=== PATIENT | female | born 1935 | race Caucasian/White ===

== ENCOUNTER → 2018-08-02 10:00 | Outpatient (CLI) | payer MEDICARE, SELFPAY ==
[2018-08-02 10:30] LABS: Add Manual Diff / Slide Review NO; Basophils Percent Auto 1.4 % (0-2); Eosinophils Percent Auto 2.2 % (2-4); Lymphocytes Percent Auto 24.4 % (25-40); Mean Corpuscular HGB Conc 33.5 % (30-36); Mean Corpuscular Hemoglobin 32.9 PG (26-34); Mean Corpuscular Volume 98.2 fL (80-100); Monocytes Percent Auto 8.3 % (3-14); Neutrophils Absolute Auto 3500 /uL (3000-5900); Neutrophils Percent Auto 63.7 % (50-75); Red Blood Cell Count 4.27 X10^6/uL (4.0-5.2); Red Cell Distribution Width 14.4 % (11.6-14.8); White Blood Cell Count 5.5 X10^3/uL (4.5-11.0)
[2018-08-02 10:35] LABS: Platelet Count 710 X10^3/uL (150-400)
[2018-08-02 11:01] LABS: Platelet Estimate Increased on smear; RBC Morphology Normal Morphology
--- NOTE | 2018-08-07 09:56 | PC.NURSE ---
Per Dr Acosta's recommendation, pt will increase Hydrea dose to 400 mg PO alternating with 200 mg PO. She will come back in 1 month to recheck her CBC.
== END ==
PROVIDERS: Family Provider Family Medicine; PCP Family Medicine
DX: D47.3 Essential (hemorrhagic) thrombocythemia (principal); D45 Polycythemia vera; J44.9 Chronic obstructive pulmonary disease, unspecified; I10 Essential (primary) hypertension; Z86.718 Personal history of other venous thrombosis and embolism
CPT/HCPCS: 36415; 85025

== ENCOUNTER → 2018-09-04 13:39 | Outpatient (CLI) | payer MEDICARE, SELFPAY ==
[2018-09-04 13:52] LABS: Add Manual Diff / Slide Review NO; Basophils Percent Auto 0.4 % (0-2); Eosinophils Percent Auto 2.3 % (2-4); Hematocrit 42.2 % (36-46); Hemoglobin 13.7 g/dL (12.0-16.0); Lymphocytes Percent Auto 23.3 % (25-40); Mean Corpuscular HGB Conc 32.5 % (30-36); Mean Corpuscular Hemoglobin 31.8 PG (26-34); Mean Corpuscular Volume 97.8 fL (80-100); Monocytes Percent Auto 10.1 % (3-14); Neutrophils Absolute Auto 5300 /uL (1500-7000); Neutrophils Percent Auto 63.9 % (50-75); Platelet Count 670 X10^3/uL (150-400); Red Blood Cell Count 4.32 X10^6/uL (4.0-5.2); Red Cell Distribution Width 14.9 % (11.6-14.8); White Blood Cell Count 8.3 X10^3/uL (4.5-11.0)
== END ==
PROVIDERS: Family Provider Family Medicine; PCP Family Medicine
DX: D47.3 Essential (hemorrhagic) thrombocythemia (principal)
CPT/HCPCS: 36415; 85025

== ENCOUNTER → 2018-11-18 10:17 | Outpatient (CLI) | payer MEDICARE, SELFPAY ==
[2018-11-18 10:58] LABS: Add Manual Diff / Slide Review NO; Basophils Absolute Auto 0 /uL (0-100); Eosinophils Absolute Auto 100 /uL (0-450); Eosinophils Percent Auto 2.4 % (2-4); Hematocrit 41.4 % (36-46); Hemoglobin 13.3 g/dL (12.0-16.0); Lymphocytes Absolute Auto 1600 /uL (1100-4500); Lymphocytes Percent Auto 33.3 % (25-40); Mean Corpuscular HGB Conc 32.1 % (30-36); Mean Corpuscular Hemoglobin 31.4 PG (26-34); Mean Corpuscular Volume 97.9 fL (80-100); Monocytes Absolute Auto 600 /uL (0-900); Monocytes Percent Auto 12.1 % (3-14); Neutrophils Absolute Auto 2500 /uL (1500-7000); Neutrophils Percent Auto 51.2 % (50-75); Platelet Count 579 X10^3/uL (150-400); Red Blood Cell Count 4.23 X10^6/uL (4.0-5.2); Red Cell Distribution Width 18.1 % (11.6-14.8); White Blood Cell Count 4.9 X10^3/uL (4.5-11.0)
[2018-11-18 11:09] LABS: Alanine Aminotransferase 30 IU/L (9-52); Albumin 4.4 g/dL (3.5-5.0); Albumin Globulin Ratio 1.6 (1.0-2.8); Alkaline Phosphatase 84 U/L (38-126); Aspartate Aminotransferase 27 IU/L (14-36); BUN Creatinine Ratio 24.4 (6-22); Bilirubin Total 0.4 mg/dL (0.2-1.3); Blood Urea Nitrogen 22 mg/dL (7-17); Calcium 9.5 mg/dL (8.4-10.2); Carbon Dioxide 30 mmol/L (22-32); Chloride 99 mmol/L (98-107); Estimated Glomerular Filt Rate 59.7 mL/min (>60); Globulin 2.8 g/dL (1.7-4.1); Glucose 80 mg/dL (80-110); HEMOLYSIS < 15 (0-50); Potassium 4.5 mmol/L (3.4-5.1); Sodium 137 mmol/L (137-145); Total Protein 7.2 g/dL (6.3-8.2)
== END ==
PROVIDERS: Family Provider Family Medicine; PCP Family Medicine
DX: D47.3 Essential (hemorrhagic) thrombocythemia (principal)
CPT/HCPCS: 36415; 80053; 85025

== ENCOUNTER → 2019-02-18 08:00 | Outpatient (ROUT) | payer MEDICARE, SELFPAY ==
[2019-02-18 09:34] LABS: Add Manual Diff / Slide Review NO; Basophils Absolute Auto 100 /uL (0-100); Basophils Percent Auto 1.3 % (0-2); Eosinophils Absolute Auto 100 /uL (0-450); Hemoglobin 13.2 g/dL (12.0-16.0); Lymphocytes Absolute Auto 1400 /uL (1100-4500); Lymphocytes Percent Auto 29.7 % (25-40); Mean Corpuscular Hemoglobin 33.7 PG (26-34); Mean Corpuscular Volume 102.2 fL (80-100); Monocytes Absolute Auto 700 /uL (0-900); Monocytes Percent Auto 13.6 % (3-14); Neutrophils Absolute Auto 2500 /uL (1500-7000); Neutrophils Percent Auto 52.4 % (50-75); Platelet Count 613 X10^3/uL (150-400); Red Blood Cell Count 3.91 X10^6/uL (4.0-5.2); Red Cell Distribution Width 14.9 % (11.6-14.8); White Blood Cell Count 4.8 X10^3/uL (4.5-11.0)
== END ==
PROVIDERS: Family Provider Family Medicine; PCP Family Medicine
DX: D47.3 Essential (hemorrhagic) thrombocythemia (principal)
CPT/HCPCS: 36415; 85025

== ENCOUNTER → 2019-08-26 11:50 | Oncology outpatient (ONC) | payer MEDICARE, SELFPAY ==
[2018-07-31 11:59] VITALS: BP 169/78; PULSE 76; RESP 20; TEMP 36.3; O2SAT 95
--- NOTE | 2018-07-31 12:27 | ONC.PN ---
PN -Subjective Interval history: Diagnosis: Essential thrombocytosis, negative for LEA-2 or KIN-R mutations. Previous treatment: Hydroxyurea. She is currently on 2 times daily. Interval history: The patient is an 82-year-old woman who was seen today for follow-up of essential thrombocytosis. Since her last visit, she had the dose of her Hydrea decreased from 400 mg daily to 200 because of muscle cramps. Since decreasing the dose, her cramping has improved although not completely resolved. She otherwise has been feeling well. She denies any new aches or pains. No fevers chills or sweats. Appetite and energy level have been stable. Her biggest complaint has been worsening memory and dementia. She does have a history of prior DVT. She also notes that she has had a problem with a blood clot in the eye. She has had some something varicose veins on her legs but it does not look like any recent obvious thrombosis. Her past medical history is notable for COPD, hypertension. She has been worried about dementia. - Patient Self-Reported Symptoms SR eye issues: Vision changes SR ears, nose, mouth, throat issues: Ears ringing, Cough, Hoarseness Home Medications and Allergies Home Medications Medication Instructions Recorded Confirmed Type ACETAMINOPHEN/DIPHENHYDRAMINE 500 mg PO HSP #0 03/27/13 07/31/18 History (Tylenol Pm Ex-Strength Gelcap) amlodipine [Norvasc] 5 mg PO QDAY #0 03/27/13 07/31/18 History aspirin 81 mg PO QDAY #0 03/27/13 07/31/18 History famotidine [Pepcid] 20 mg PO BID #0 03/27/13 07/31/18 History mesalamine [Delzicol] 400 mg PO BID #0 03/27/13 07/31/18 History ferrous sulfate [iron] 325 mg PO DAILY 07/31/18 07/31/18 History hydroxyurea (sickle cell) [Droxia] 15 mg/kg PO DAILY 07/31/18 07/31/18 History methocarbamol 500 mg PO BID 07/31/18 07/31/18 History Allergies Allergy/AdvReac Type Severity Reaction Status Date / Time celecoxib [From CELEBREX] Allergy Unknown Verified 07/31/18 11:07 lisinopril [LISINOPRIL] Allergy Unknown Verified 07/31/18 11:07 rofecoxib Allergy Unknown Verified 07/31/18 11:07 Sulfa (Sulfonamide Allergy Unknown Verified 07/31/18 11:07 Antibiotics) sulfamethoxazole Allergy Unknown Verified 07/31/18 11:07 [From BACTRIM] tramadol [TRAMADOL] Allergy Unknown Verified 07/31/18 11:07 trimethoprim [From BACTRIM] Allergy Unknown Verified 07/31/18 11:07 ranitidine AdvReac Unknown Verified 07/31/18 11:07 Exam - Constitutional positive no acute distress, positive average body habitus - Routine HEENT Exam Head: Present: normocephalic, atraumatic Eye: Present: EOMI, PERRL. Absent: conjunctival icterus, scleral injection ENT: Present: mucous membranes moist, oropharynx clear - Routine Neck Exam Present: supple. Absent: lymphadenopathy, thyromegaly - Routine Chest/Breast/Axilla Exam Axillae: Absent: lymphadenopathy - Routine Respiratory Exam Present: Clear to auscultation bilaterally. Absent: rales, wheezes - Routine Cardiovascular Exam Present: RRR, S1, S2. Absent: murmur - Routine Abdominal Exam Present: soft, normoactive bowel sounds. Absent: tenderness, organomegaly, mass - Routine Extremities Exam Absent: cyanosis, clubbing, edema - Routine Skin Exam Present: intact, rash. Absent: petechiae Comments: She does have some varicose veins on the left lower extremity but no ulcers on the skin. Results - Labs Her most recent CBC in early July at [facility] showed a platelet count of [id number]. Assessment and Plan (1) Essential (hemorrhagic) thrombocythemia Current visit: Yes Status: Acute 82-year-old woman with a longstanding history of essential thrombocytosis. She is tolerating the lower dose of Hydrea but her platelet count seems to be increasing somewhat. We will plan on repeating a CBC today. She will return to clinic in about 2 months for follow-up. If her platelet count is consistently over 600,000, I think she will need to try and push the dose of Hydrea a little bit higher. We did briefly discuss the possibility of switching to anagrelide but she was concerned about their side effects. She return to clinic in about 2 weeks for follow-up but sooner should the need arise.
[2018-09-25 11:42] VITALS: BP 134/80; PULSE 93; RESP 18; TEMP 36.6; O2SAT 95
--- NOTE | 2018-09-25 12:04 | ONC.PN ---
PN -Subjective Interval history: Diagnosis: Essential thrombocytosis, negative for LEA-2 or KIN-R mutations. Previous treatment: Hydroxyurea. She is currently on 200 mg a day alternating with 200 mg twice a day. Interval history: The patient is an 82-year-old woman who was seen today for follow-up of essential thrombocytosis. Since her last visit, she has been on Hydrea 200 mg a day alternating with 400 mg a day. She has had some muscle cramps that had increased compared to the 200 mg a day dose. However, she finds the manageable. She has not had any recent bleeding or clotting complications. She denies any fevers chills or night sweats. Her appetite has been good. She has not had any abdominal pain but does have some increased frequency of stools particularly at night. No shortness of breath or cough. No dizziness or lightheadedness. She has been bothered by worsening dementia. She started a new supplement. She thinks that this is helping. She denies any other changes in her health. She does have a history of prior DVT. She also notes that she has had a problem with a blood clot in the eye. She has had some something varicose veins on her legs but it does not look like any recent obvious thrombosis. Her past medical history is notable for COPD, hypertension. She has been worried about dementia. - Patient Self-Reported Symptoms SR eye issues: Vision changes SR ears, nose, mouth, throat issues: Ears ringing SR respiratory issues: Cough SR Cardiovascular issues: Palpitations SR Gastrointestinal issues: Change in bowel pattern SR Genitourinary issues: Frequent urination SR Musculoskeletal issues: Muscle pain or cramps, Back or neck pain SR Neuro issues: Difficulty balancing SR Endocrine issues: Excessive urination Home Medications and Allergies Home Medications Medication Instructions Recorded Confirmed Type ACETAMINOPHEN/DIPHENHYDRAMINE 500 mg PO HSP #0 03/27/13 07/31/18 History (Tylenol Pm Ex-Strength Gelcap) amlodipine [Norvasc] 5 mg PO QDAY #0 03/27/13 07/31/18 History aspirin 81 mg PO QDAY #0 03/27/13 07/31/18 History famotidine [Pepcid] 20 mg PO BID #0 03/27/13 07/31/18 History mesalamine [Delzicol] 400 mg PO BID #0 03/27/13 07/31/18 History ferrous sulfate [iron] 325 mg PO DAILY 07/31/18 07/31/18 History hydroxyurea (sickle cell) [Droxia] 15 mg/kg PO DAILY 07/31/18 07/31/18 History methocarbamol 500 mg PO BID 07/31/18 07/31/18 History Allergies Allergy/AdvReac Type Severity Reaction Status Date / Time celecoxib [From CELEBREX] Allergy Unknown Verified 07/31/18 11:07 lisinopril [LISINOPRIL] Allergy Unknown Verified 07/31/18 11:07 rofecoxib Allergy Unknown Verified 07/31/18 11:07 Sulfa (Sulfonamide Allergy Unknown Verified 07/31/18 11:07 Antibiotics) sulfamethoxazole Allergy Unknown Verified 07/31/18 11:07 [From BACTRIM] tramadol [TRAMADOL] Allergy Unknown Verified 07/31/18 11:07 trimethoprim [From BACTRIM] Allergy Unknown Verified 07/31/18 11:07 ranitidine AdvReac Unknown Verified 07/31/18 11:07 Exam - Constitutional positive no acute distress, positive average body habitus Comments: She is not further examined. Results - Labs On September 04, her platelet count was [id number]. Assessment and Plan (1) Essential (hemorrhagic) thrombocythemia Current visit: Yes Status: Acute 82-year-old woman with a longstanding history of essential thrombocytosis. She is tolerating her current dose of Hydrea reasonably well but still is having some cramping. However, she finds it manageable. Her platelet count is still somewhat higher than ideal. She is willing to go back to the 400 mg a day dose. She will continue with monthly CBCs and return to clinic in about 2 months for follow-up.
--- NOTE | 2018-10-22 15:56 | PC.NURSE ---
Pt called to report a purple spot with a red center on inside of her leg. Pt states she has had multiple blood clots and is worried this could be another one. I encouraged her to go to the ED if she felt it was warranty but she declined. She denied it being sore, swollen, or warm to touch. She comes on 10/23 for labs and she will also have an RN jyoti at that time
[2018-10-23 11:08] LABS: Add Manual Diff / Slide Review NO; Basophils Absolute Auto 100 /uL (0-100); Basophils Percent Auto 1.5 % (0-2); Eosinophils Absolute Auto 100 /uL (0-450); Eosinophils Percent Auto 2.7 % (2-4); Hemoglobin 13.8 g/dL (12.0-16.0); Lymphocytes Absolute Auto 1700 /uL (1100-4500); Lymphocytes Percent Auto 31.2 % (25-40); Mean Corpuscular HGB Conc 32.1 % (30-36); Mean Corpuscular Hemoglobin 31.2 PG (26-34); Mean Corpuscular Volume 97.2 fL (80-100); Monocytes Absolute Auto 600 /uL (0-900); Monocytes Percent Auto 11.6 % (3-14); Neutrophils Absolute Auto 2800 /uL (1500-7000); Platelet Count 600 X10^3/uL (150-400); Red Blood Cell Count 4.42 X10^6/uL (4.0-5.2); Red Cell Distribution Width 16.9 % (11.6-14.8); White Blood Cell Count 5.4 X10^3/uL (4.5-11.0)
[2018-11-26 15:54] VITALS: BP 151/78; PULSE 71; RESP 18; TEMP 36.6; O2SAT 97
--- NOTE | 2018-11-26 16:22 | P.PNONC_ITS ---
PN -Subjective Interval history: Diagnosis: Essential thrombocytosis, negative for LEA-2 or KIN-R mutations. Previous treatment: Hydroxyurea. She is currently on 200 mg twice a day. Interval history: The patient is an 83-year-old woman who was seen today for follow-up of essential thrombocytosis. Since her last visit, she has been on Hydrea 400 mg a day. She has had worsening of her muscle cramps particularly in her hands. It has made it difficult to go about a lot of her normal activities such as drying her hair. She has not had any unusual bleeding. She does bruise fairly easily. She denies any gingival bleeding or epistaxis though. No blood in the urine or stool. She denies any fevers chills or sweats. Her appetite has been stable. She has not been losing any weight. She denies any GI complaints. She has been bothered by a small lump on the right side of her posterior neck. She also reports that she is due for some eye surgery. At her last visit, we discussed decreasing the dose of her Hydrea to 200 mg a day alternating with 400 mg a day. She did not do this instead has been taking 400 mg daily. She does have a history of prior DVT. She also notes that she has had a problem with a blood clot in the eye. She has had some something varicose veins on her legs but it does not look like any recent obvious thrombosis. Her past medical history is notable for COPD, hypertension. She has been worried about dementia. - Patient Self-Reported Symptoms SR eye issues: Vision changes SR ears, nose, mouth, throat issues: Ears ringing SR respiratory issues: Cough SR Cardiovascular issues: Palpitations SR Gastrointestinal issues: Change in bowel pattern SR Genitourinary issues: Frequent urination SR Musculoskeletal issues: Muscle pain or cramps, Back or neck pain SR Neuro issues: Difficulty balancing SR Endocrine issues: Excessive urination Home Medications and Allergies Home Medications Medication Instructions Recorded Confirmed Type ACETAMINOPHEN/DIPHENHYDRAMINE 500 mg PO HSP #0 03/27/13 11/26/18 History (Tylenol Pm Ex-Strength Gelcap) Delzicol 400 mg PO BID #0 03/27/13 11/26/18 History amlodipine [Norvasc] 5 mg PO QDAY #0 03/27/13 11/26/18 History aspirin 81 mg PO QDAY #0 03/27/13 11/26/18 History famotidine [Pepcid] 20 mg PO BID #0 03/27/13 11/26/18 History ferrous sulfate [iron] 325 mg PO DAILY 07/31/18 11/26/18 History hydroxyurea (sickle cell) [Droxia] 15 mg/kg PO DAILY 07/31/18 11/26/18 History methocarbamol 500 mg PO BID 07/31/18 11/26/18 History Allergies Allergy/AdvReac Type Severity Reaction Status Date / Time celecoxib [From CELEBREX] Allergy Unknown Verified 07/31/18 11:07 lisinopril [LISINOPRIL] Allergy Unknown Verified 07/31/18 11:07 rofecoxib Allergy Unknown Verified 07/31/18 11:07 Sulfa (Sulfonamide Allergy Unknown Verified 07/31/18 11:07 Antibiotics) sulfamethoxazole Allergy Unknown Verified 07/31/18 11:07 [From BACTRIM] tramadol [TRAMADOL] Allergy Unknown Verified 07/31/18 11:07 trimethoprim [From BACTRIM] Allergy Unknown Verified 07/31/18 11:07 ranitidine AdvReac Unknown Verified 07/31/18 11:07 Exam Vital signs: Vital Signs Temp Pulse Resp BP Pulse Ox 11/26/18 15:54 97.9 F 71 18 151/78 H 97 Intake and Output 11/26/18 11/26/18 11/26/18 07:59 15:59 23:59 Other: Weight 55.8 kg Patient Weight 11/26/18 23:59 Weight 55.8 kg - Constitutional positive no acute distress, positive average body habitus - Routine HEENT Exam Head: Present: normocephalic, atraumatic Eye: Present: EOMI, PERRL. Absent: conjunctival icterus, scleral injection ENT: Present: mucous membranes moist, oropharynx clear - Routine Neck Exam Present: supple. Absent: lymphadenopathy, thyromegaly Comments: She has a small nodular subcutaneous lesion on the right posterior neck that is about 5 mm in size. It is mobile and not tender. There is no overlying erythema. - Routine Respiratory Exam Present: Clear to auscultation bilaterally. Absent: rales, wheezes - Routine Cardiovascular Exam Present: RRR, S1, S2. Absent: murmur - Routine Abdominal Exam Present: soft, normoactive bowel sounds. Absent: tenderness, organomegaly, mass - Routine Extremities Exam Absent: cyanosis, clubbing, edema - Routine Back/Spine Exam Back/Spine: Absent: vertebral tenderness - Routine Skin Exam Present: intact. Absent: petechiae, rash - Routine Neurological Exam Present: alert, oriented X3 - Routine Psychiatric Exam Present: normal affect, normal thought process Results - Labs Laboratory Last Values WBC 5.4 X10^3/uL (4.5-11.0) 10/23/18 10:58 RBC 4.42 X10^6/uL (4.0-5.2) 10/23/18 10:58 Hgb 13.8 g/dL (12.0-16.0) 10/23/18 10:58 Hct 43.0 % (36-46) 10/23/18 10:58 MCV 97.2 fL (80-100) 10/23/18 10:58 MCH 31.2 PG (26-34) 10/23/18 10:58 MCHC 32.1 % (30-36) 10/23/18 10:58 RDW 16.9 % (11.6-14.8) H 10/23/18 10:58 Plt Count 600 X10^3/uL (150-400) H 10/23/18 10:58 Neut % (Auto) 53.0 % (50-75) 10/23/18 10:58 Lymph % (Auto) 31.2 % (25-40) 10/23/18 10:58 [place] % (Auto) 11.6 % (3-14) 10/23/18 10:58 Eos % (Auto) 2.7 % (2-4) 10/23/18 10:58 Baso % (Auto) 1.5 % (0-2) 10/23/18 10:58 Neut # (Auto) 2800 /uL (7923-9884) 10/23/18 10:58 Lymph # (Auto) 1700 /uL (1388-2482) 10/23/18 10:58 [place] # (Auto) 600 /uL (0-900) 10/23/18 10:58 Eos # (Auto) 100 /uL (0-450) 10/23/18 10:58 Baso # (Auto) 100 /uL (0-100) 10/23/18 10:58 Assessment and Plan (1) Essential (hemorrhagic) thrombocythemia Current visit: Yes Status: Acute 82-year-old woman with a longstanding history of essential thrombocytosis. She is tolerating her current dose of Hydrea reasonably well but still is having some cramping. She will try switching now to 200 mg a day alternating with 400 mg on the Hydrea. Hopefully this will provide ongoing good control of her platelet count with decrease in the amount of cramping that she is having. She will continue with monthly CBCs. She will return to clinic in about 3 months for follow-up.
[2018-12-27 11:44] LABS: Add Manual Diff / Slide Review NO; Basophils Absolute Auto 100 /uL (0-100); Basophils Percent Auto 1.4 % (0-2); Eosinophils Absolute Auto 100 /uL (0-450); Eosinophils Percent Auto 2.2 % (2-4); Hematocrit 40.2 % (36-46); Hemoglobin 13.4 g/dL (12.0-16.0); Lymphocytes Absolute Auto 1700 /uL (1100-4500); Lymphocytes Percent Auto 31.7 % (25-40); Mean Corpuscular HGB Conc 33.4 % (30-36); Mean Corpuscular Hemoglobin 33.7 PG (26-34); Mean Corpuscular Volume 100.9 fL (80-100); Monocytes Absolute Auto 700 /uL (0-900); Monocytes Percent Auto 13.7 % (3-14); Neutrophils Absolute Auto 2700 /uL (1500-7000); Platelet Count 574 X10^3/uL (150-400); Red Blood Cell Count 3.99 X10^6/uL (4.0-5.2); Red Cell Distribution Width 17.5 % (11.6-14.8); White Blood Cell Count 5.4 X10^3/uL (4.5-11.0)
[2019-01-28 11:13] LABS: Add Manual Diff / Slide Review NO; Basophils Absolute Auto 100 /uL (0-100); Basophils Percent Auto 1.3 % (0-2); Eosinophils Absolute Auto 100 /uL (0-450); Eosinophils Percent Auto 1.2 % (2-4); Hematocrit 39.7 % (36-46); Hemoglobin 13.5 g/dL (12.0-16.0); Lymphocytes Absolute Auto 1800 /uL (1100-4500); Lymphocytes Percent Auto 20.5 % (25-40); Mean Corpuscular HGB Conc 34.1 % (30-36); Mean Corpuscular Hemoglobin 34.2 PG (26-34); Mean Corpuscular Volume 100.3 fL (80-100); Monocytes Absolute Auto 900 /uL (0-900); Monocytes Percent Auto 10.2 % (3-14); Neutrophils Absolute Auto 5900 /uL (1500-7000); Neutrophils Percent Auto 66.8 % (50-75); Platelet Count 634 X10^3/uL (150-400); Red Blood Cell Count 3.96 X10^6/uL (4.0-5.2); Red Cell Distribution Width 15.7 % (11.6-14.8); White Blood Cell Count 8.8 X10^3/uL (4.5-11.0)
[2019-01-28 11:24] LABS: Alanine Aminotransferase 26 IU/L (9-52); Albumin 4.5 g/dL (3.5-5.0); Albumin Globulin Ratio 1.7 (1.0-2.8); Alkaline Phosphatase 88 U/L (38-126); Aspartate Aminotransferase 28 IU/L (14-36); BUN Creatinine Ratio 37.8 (6-22); Bilirubin Total 0.5 mg/dL (0.2-1.3); Blood Urea Nitrogen 34 mg/dL (7-17); Carbon Dioxide 32 mmol/L (22-32); Chloride 100 mmol/L (98-107); Estimated Glomerular Filt Rate 59.7 mL/min (>60); Globulin 2.6 g/dL (1.7-4.1); Glucose 77 mg/dL (80-110); HEMOLYSIS < 15 (0-50); Potassium 4.6 mmol/L (3.4-5.1); Sodium 139 mmol/L (137-145); Total Protein 7.1 g/dL (6.3-8.2)
[2019-02-25 13:15] VITALS: BP 153/69; PULSE 69; RESP 16; TEMP 36.7; O2SAT 96
--- NOTE | 2019-02-25 13:38 | ONC.PN ---
PN -Subjective Interval history: Diagnosis: Essential thrombocytosis, negative for LEA-2 or KIN-R mutations. Previous treatment: Hydroxyurea. She is currently on 200 mg twice a day alternating with 200 mg daily. Interval history: The patient is an 83-year-old woman who was seen today for follow-up of essential thrombocytosis. Since her last visit, she has been on Hydrea 400 mg a day alternating with 200 mg daily. She has had ongoing muscle cramps particularly in her hands. It has made it difficult to go about a lot of her normal activities such as drying her hair. She does not believe that the cramping is any better on the lower dose. She has not had any unusual bleeding. She does bruise fairly easily. She denies any gingival bleeding or epistaxis though. No blood in the urine or stool. She denies any fevers chills or sweats. Her appetite has been stable. She has not been losing any weight. She denies any GI complaints. She has been bothered by a small lump on the right side of her posterior neck. She recently had some eye surgery with no bleeding or clotting complications. She does have a history of prior DVT. She also notes that she has had a problem with a blood clot in the eye. She has had some something varicose veins on her legs but it does not look like any recent obvious thrombosis. Her past medical history is notable for COPD, hypertension. She has been worried about dementia. - Patient Self-Reported Symptoms SR eye issues: Vision changes SR ears, nose, mouth, throat issues: Ears ringing SR respiratory issues: Cough SR Cardiovascular issues: Palpitations SR Gastrointestinal issues: Change in bowel pattern SR Genitourinary issues: Frequent urination SR Musculoskeletal issues: Muscle weakness, Muscle pain or cramps SR Neuro issues: Difficulty balancing SR Endocrine issues: Excessive urination Home Medications and Allergies Home Medications Medication Instructions Recorded Confirmed Type ACETAMINOPHEN/DIPHENHYDRAMINE 500 mg PO HSP #0 03/27/13 11/26/18 History (Tylenol Pm Ex-Strength Gelcap) Delzicol 400 mg PO BID #0 03/27/13 11/26/18 History amlodipine [Norvasc] 5 mg PO QDAY #0 03/27/13 11/26/18 History aspirin 81 mg PO QDAY #0 03/27/13 11/26/18 History famotidine [Pepcid] 20 mg PO BID #0 03/27/13 11/26/18 History ferrous sulfate [iron] 325 mg PO DAILY 07/31/18 11/26/18 History hydroxyurea (sickle cell) [Droxia] 15 mg/kg PO DAILY 07/31/18 11/26/18 History methocarbamol 500 mg PO BID 07/31/18 11/26/18 History donepezil 5 mg PO BEDTIME 02/25/19 02/25/19 History Allergies Allergy/AdvReac Type Severity Reaction Status Date / Time celecoxib [From CELEBREX] Allergy Unknown Verified 07/31/18 11:07 lisinopril [LISINOPRIL] Allergy Unknown Verified 07/31/18 11:07 rofecoxib Allergy Unknown Verified 07/31/18 11:07 Sulfa (Sulfonamide Allergy Unknown Verified 07/31/18 11:07 Antibiotics) sulfamethoxazole Allergy Unknown Verified 07/31/18 11:07 [From BACTRIM] tramadol [TRAMADOL] Allergy Unknown Verified 07/31/18 11:07 trimethoprim [From BACTRIM] Allergy Unknown Verified 07/31/18 11:07 ranitidine AdvReac Unknown Verified 07/31/18 11:07 Exam Vital signs: Vital Signs Temp Pulse Resp BP Pulse Ox 02/25/19 13:15 98.0 F 69 16 153/69 H 96 Intake and Output 02/24/19 02/25/19 02/25/19 23:59 07:59 15:59 Other: Weight 54.3 kg Patient Weight 02/25/19 23:59 Weight 54.3 kg - Constitutional positive no acute distress, positive average body habitus - Routine HEENT Exam Head: Present: normocephalic, atraumatic Eye: Present: EOMI, PERRL. Absent: conjunctival icterus ENT: Present: mucous membranes moist, oropharynx clear - Routine Neck Exam Present: supple. Absent: lymphadenopathy - Routine Respiratory Exam Present: Clear to auscultation bilaterally. Absent: rales, wheezes - Routine Cardiovascular Exam Present: RRR, S1, S2. Absent: murmur - Routine Abdominal Exam Present: soft, normoactive bowel sounds. Absent: tenderness, organomegaly, mass - Routine Extremities Exam Absent: edema Comments: She does have swelling of the joints consistent with osteoarthritis. - Routine Skin Exam Present: intact. Absent: petechiae, rash - Routine Neurological Exam Present: alert, oriented X3 - Routine Psychiatric Exam Present: normal affect, normal thought process Results - Labs Laboratory Last Values WBC 8.8 X10^3/uL (4.5-11.0) 01/28/19 11:00 RBC 3.96 X10^6/uL (4.0-5.2) L 01/28/19 11:00 Hgb 13.5 g/dL (12.0-16.0) 01/28/19 11:00 Hct 39.7 % (36-46) 01/28/19 11:00 MCV 100.3 fL (80-100) H 01/28/19 11:00 MCH 34.2 PG (26-34) H 01/28/19 11:00 MCHC 34.1 % (30-36) 01/28/19 11:00 RDW 15.7 % (11.6-14.8) H 01/28/19 11:00 Plt Count 634 X10^3/uL (150-400) H 01/28/19 11:00 Neut % (Auto) 66.8 % (50-75) 01/28/19 11:00 Lymph % (Auto) 20.5 % (25-40) L 01/28/19 11:00 [place] % (Auto) 10.2 % (3-14) 01/28/19 11:00 Eos % (Auto) 1.2 % (2-4) L 01/28/19 11:00 Baso % (Auto) 1.3 % (0-2) 01/28/19 11:00 Neut # (Auto) 5900 /uL (6369-1808) 01/28/19 11:00 Lymph # (Auto) 1800 /uL (3256-8242) 01/28/19 11:00 [place] # (Auto) 900 /uL (0-900) 01/28/19 11:00 Eos # (Auto) 100 /uL (0-450) 01/28/19 11:00 Baso # (Auto) 100 /uL (0-100) 01/28/19 11:00 Sodium 139 mmol/L (137-145) 01/28/19 11:00 Potassium 4.6 mmol/L (3.4-5.1) 01/28/19 11:00 Chloride 100 mmol/L (98-107) 01/28/19 11:00 Carbon Dioxide 32 mmol/L (22-32) 01/28/19 11:00 BUN 34 mg/dL (7-17) H 01/28/19 11:00 Creatinine 0.90 mg/dL (0.52-1.04) 01/28/19 11:00 Estimated GFR 59.7 mL/min (>60) L 01/28/19 11:00 BUN/Creatinine Ratio 37.8 (6-22) H 01/28/19 11:00 Glucose 77 mg/dL (80-110) L 01/28/19 11:00 Calcium 10.0 mg/dL (8.4-10.2) 01/28/19 11:00 Total Bilirubin 0.5 mg/dL (0.2-1.3) 01/28/19 11:00 AST 28 IU/L (14-36) 01/28/19 11:00 ALT 26 IU/L (9-52) 01/28/19 11:00 Alkaline Phosphatase 88 U/L (38-126) 01/28/19 11:00 Total Protein 7.1 g/dL (6.3-8.2) 01/28/19 11:00 Albumin 4.5 g/dL (3.5-5.0) 01/28/19 11:00 Globulin 2.6 g/dL (1.7-4.1) 01/28/19 11:00 Albumin/Globulin Ratio 1.7 (1.0-2.8) 01/28/19 11:00 Assessment and Plan (1) Essential (hemorrhagic) thrombocythemia Current visit: Yes Status: Acute 82-year-old woman with a longstanding history of essential thrombocytosis. She is tolerating her current dose of Hydrea except for cramping. She will try switching now to 200 mg a day. Hopefully this will provide ongoing good control of her platelet count with decrease in the amount of cramping that she is having. She will continue with monthly CBCs. She will return to clinic in about 2 months for follow-up.
[2019-03-26 11:03] LABS: Basophils Absolute Auto 100 /uL (0-100); Basophils Percent Auto 1.3 % (0-2); Eosinophils Absolute Auto 200 /uL (0-450); Eosinophils Percent Auto 2.1 % (2-4); Hematocrit 40.4 % (36-46); Hemoglobin 13.5 g/dL (12.0-16.0); Lymphocytes Absolute Auto 1700 /uL (1100-4500); Lymphocytes Percent Auto 21.9 % (25-40); Mean Corpuscular HGB Conc 33.4 % (30-36); Mean Corpuscular Volume 98.9 fL (80-100); Monocytes Absolute Auto 1000 /uL (0-900); Monocytes Percent Auto 12.4 % (3-14); Neutrophils Absolute Auto 4900 /uL (1500-7000); Neutrophils Percent Auto 62.3 % (50-75); Red Blood Cell Count 4.08 X10^6/uL (4.0-5.2); Red Cell Distribution Width 14.5 % (11.6-14.8); White Blood Cell Count 7.9 X10^3/uL (4.5-11.0)
[2019-03-26 11:08] LABS: Add Manual Diff / Slide Review SLIDE REVIEW; Platelet Count 733 X10^3/uL (150-400)
[2019-03-26 11:26] LABS: Platelet Estimate Increased on smear; RBC Morphology Normal Morphology
[2019-04-22 11:51] LABS: Add Manual Diff / Slide Review NO; Basophils Absolute Auto 100 /uL (0-100); Basophils Percent Auto 1.2 % (0-2); Eosinophils Absolute Auto 200 /uL (0-450); Eosinophils Percent Auto 2.5 % (2-4); Hematocrit 42.9 % (36-46); Hemoglobin 14.2 g/dL (12.0-16.0); Lymphocytes Absolute Auto 1600 /uL (1100-4500); Lymphocytes Percent Auto 23.6 % (25-40); Mean Corpuscular Hemoglobin 31.6 PG (26-34); Mean Corpuscular Volume 95.8 fL (80-100); Monocytes Absolute Auto 900 /uL (0-900); Monocytes Percent Auto 13.1 % (3-14); Neutrophils Absolute Auto 4100 /uL (1500-7000); Neutrophils Percent Auto 59.6 % (50-75); Platelet Count 752 X10^3/uL (150-400); Red Blood Cell Count 4.48 X10^6/uL (4.0-5.2); Red Cell Distribution Width 14.6 % (11.6-14.8); White Blood Cell Count 6.9 X10^3/uL (4.5-11.0)
[2019-04-22 11:56] LABS: Alanine Aminotransferase 41 IU/L (9-52); Albumin 4.4 g/dL (3.5-5.0); Albumin Globulin Ratio 1.6 (1.0-2.8); Alkaline Phosphatase 100 U/L (38-126); Aspartate Aminotransferase 35 IU/L (14-36); BUN Creatinine Ratio 33.8 (6-22); Bilirubin Total 0.4 mg/dL (0.2-1.3); Blood Urea Nitrogen 27 mg/dL (7-17); Calcium 9.6 mg/dL (8.4-10.2); Carbon Dioxide 29 mmol/L (22-32); Chloride 100 mmol/L (98-107); Estimated Glomerular Filt Rate > 60.0 mL/min (>60); Globulin 2.7 g/dL (1.7-4.1); Glucose 91 mg/dL (80-110); HEMOLYSIS < 15 (0-50); Potassium 5.2 mmol/L (3.4-5.1); Sodium 140 mmol/L (137-145); Total Protein 7.1 g/dL (6.3-8.2)
[2019-04-22 12:17] LABS: Platelet Estimate Increased on smear
[2019-04-22 12:18] LABS: RBC Morphology Normal Morphology
[2019-04-29 13:48] VITALS: BP 139/69; PULSE 64; RESP 16; TEMP 36.7; O2SAT 95
--- NOTE | 2019-04-29 14:08 | ONC.PN ---
PN -Subjective Interval history: Diagnosis: Essential thrombocytosis, negative for LEA-2 or KIN-R mutations. Previous treatment: Hydroxyurea. She is currently on 200 mg daily. Interval history: The patient is an 83-year-old woman who was seen today for follow-up of essential thrombocytosis. Since her last visit, she has had some confusion about how often to take her hydroxyurea. It sounds like she has been taking 1 tablet daily but last week started taking 2 daily. Since her last visit here, she has been feeling generally well. She has had some ongoing trouble with neuropathy that is been stable. She is using some gabapentin but has not noticed any improvement in her symptoms. She denies any unusual bleeding or bruising. No fevers chills or sweats. Appetite has been stable. Bowels have been moving normally. No shortness of breath or cough. She denies any other changes in her health. Her past medical history is notable for COPD, hypertension. She has been worried about dementia. - Patient Self-Reported Symptoms SR eye issues: Vision changes SR ears, nose, mouth, throat issues: Ears ringing SR respiratory issues: Cough SR Cardiovascular issues: Palpitations SR Gastrointestinal issues: Change in bowel pattern SR Genitourinary issues: Frequent urination SR Musculoskeletal issues: Muscle pain or cramps, Back or neck pain SR Neuro issues: Difficulty balancing SR Endocrine issues: Excessive urination Home Medications and Allergies Home Medications Medication Instructions Recorded Confirmed Type ACETAMINOPHEN/DIPHENHYDRAMINE 500 mg PO HSP #0 03/27/13 11/26/18 History (Tylenol Pm Ex-Strength Gelcap) Delzicol 400 mg PO BID #0 03/27/13 11/26/18 History amlodipine [Norvasc] 5 mg PO QDAY #0 03/27/13 11/26/18 History aspirin 81 mg PO QDAY #0 03/27/13 11/26/18 History famotidine [Pepcid] 20 mg PO BID #0 03/27/13 11/26/18 History ferrous sulfate [iron] 325 mg PO DAILY 07/31/18 11/26/18 History hydroxyurea (sickle cell) [Droxia] 15 mg/kg PO DAILY 07/31/18 11/26/18 History methocarbamol 500 mg PO BID 07/31/18 11/26/18 History donepezil 5 mg PO BEDTIME 02/25/19 02/25/19 History gabapentin 300 mg PO BEDTIME 04/29/19 04/29/19 History Allergies Allergy/AdvReac Type Severity Reaction Status Date / Time celecoxib [From CELEBREX] Allergy Unknown Verified 07/31/18 11:07 lisinopril [LISINOPRIL] Allergy Unknown Verified 07/31/18 11:07 rofecoxib Allergy Unknown Verified 07/31/18 11:07 Sulfa (Sulfonamide Allergy Unknown Verified 07/31/18 11:07 Antibiotics) sulfamethoxazole Allergy Unknown Verified 07/31/18 11:07 [From BACTRIM] tramadol [TRAMADOL] Allergy Unknown Verified 07/31/18 11:07 trimethoprim [From BACTRIM] Allergy Unknown Verified 07/31/18 11:07 ranitidine AdvReac Unknown Verified 07/31/18 11:07 Exam Vital signs: Vital Signs Temp Pulse Resp BP Pulse Ox 04/29/19 13:48 98.1 F 64 16 139/69 95 Intake and Output 04/28/19 04/29/19 04/29/19 23:59 07:59 15:59 Other: Weight 53.6 kg Patient Weight 04/29/19 23:59 Weight 53.6 kg - Constitutional positive no acute distress, positive thin - Routine HEENT Exam Head: Present: normocephalic, atraumatic Eye: Present: EOMI, PERRL. Absent: conjunctival icterus, scleral injection ENT: Present: mucous membranes moist, oropharynx clear - Routine Neck Exam Present: supple. Absent: lymphadenopathy, thyromegaly - Routine Respiratory Exam Present: Clear to auscultation bilaterally. Absent: rales, wheezes - Routine Cardiovascular Exam Present: RRR, S1, S2. Absent: murmur - Routine Abdominal Exam Present: soft, normoactive bowel sounds. Absent: tenderness, organomegaly, mass - Routine Extremities Exam Absent: cyanosis, clubbing, edema - Routine Back/Spine Exam Back/Spine: Absent: vertebral tenderness - Routine Skin Exam Present: intact. Absent: petechiae, rash - Routine Neurological Exam Present: alert, oriented X3 - Routine Psychiatric Exam Present: normal affect, normal thought process Results - Labs Laboratory Last Values WBC 6.9 X10^3/uL (4.5-11.0) 04/22/19 11:18 RBC 4.48 X10^6/uL (4.0-5.2) 04/22/19 11:18 Hgb 14.2 g/dL (12.0-16.0) 04/22/19 11:18 Hct 42.9 % (36-46) 04/22/19 11:18 MCV 95.8 fL (80-100) 04/22/19 11:18 MCH 31.6 PG (26-34) 04/22/19 11:18 MCHC 33.0 % (30-36) 04/22/19 11:18 RDW 14.6 % (11.6-14.8) 04/22/19 11:18 Plt Count 752 X10^3/uL (150-400) H 04/22/19 11:18 Neut % (Auto) 59.6 % (50-75) 04/22/19 11:18 Lymph % (Auto) 23.6 % (25-40) L 04/22/19 11:18 [place] % (Auto) 13.1 % (3-14) 04/22/19 11:18 Eos % (Auto) 2.5 % (2-4) 04/22/19 11:18 Baso % (Auto) 1.2 % (0-2) 04/22/19 11:18 Neut # (Auto) 4100 /uL (4610-1066) 04/22/19 11:18 Lymph # (Auto) 1600 /uL (8894-5613) 04/22/19 11:18 [place] # (Auto) 900 /uL (0-900) 04/22/19 11:18 Eos # (Auto) 200 /uL (0-450) 04/22/19 11:18 Baso # (Auto) 100 /uL (0-100) 04/22/19 11:18 Platelet Estimate Increased on smear 04/22/19 11:18 Plt Morphology Comment 04/22/19 11:18 RBC Morphology Normal morphology 04/22/19 11:18 Sodium 140 mmol/L (137-145) 04/22/19 11:18 Potassium 5.2 mmol/L (3.4-5.1) H 04/22/19 11:18 Chloride 100 mmol/L (98-107) 04/22/19 11:18 Carbon Dioxide 29 mmol/L (22-32) 04/22/19 11:18 BUN 27 mg/dL (7-17) H 04/22/19 11:18 Creatinine 0.80 mg/dL (0.52-1.04) 04/22/19 11:18 Estimated GFR > 60.0 mL/min (>60) 04/22/19 11:18 BUN/Creatinine Ratio 33.8 (6-22) H 04/22/19 11:18 Glucose 91 mg/dL (80-110) 04/22/19 11:18 Calcium 9.6 mg/dL (8.4-10.2) 04/22/19 11:18 Total Bilirubin 0.4 mg/dL (0.2-1.3) 04/22/19 11:18 AST 35 IU/L (14-36) 04/22/19 11:18 ALT 41 IU/L (9-52) 04/22/19 11:18 Alkaline Phosphatase 100 U/L (38-126) 04/22/19 11:18 Total Protein 7.1 g/dL (6.3-8.2) 04/22/19 11:18 Albumin 4.4 g/dL (3.5-5.0) 04/22/19 11:18 Globulin 2.7 g/dL (1.7-4.1) 04/22/19 11:18 Albumin/Globulin Ratio 1.6 (1.0-2.8) 04/22/19 11:18 Assessment and Plan (1) Essential (hemorrhagic) thrombocythemia Current visit: Yes Status: Acute 82-year-old woman with a longstanding history of essential thrombocytosis. Her white cell count red cell count of been normal or platelet count is in the 700. Will try and increase the dose of Hydrea a little bit. She will try and stick with the 1 pill a day alternating with 2 pills a day. She will continue with monthly CBCs and return to clinic in 3 months for follow-up.
[2019-05-28 11:36] LABS: Add Manual Diff / Slide Review NO; Basophils Absolute Auto 100 /uL (0-100); Basophils Percent Auto 1.1 % (0-2); Eosinophils Absolute Auto 200 /uL (0-450); Eosinophils Percent Auto 2.3 % (2-4); Hematocrit 41.7 % (36-46); Hemoglobin 13.5 g/dL (12.0-16.0); Lymphocytes Absolute Auto 2000 /uL (1100-4500); Lymphocytes Percent Auto 30.3 % (25-40); Mean Corpuscular HGB Conc 32.2 % (30-36); Mean Corpuscular Hemoglobin 30.6 PG (26-34); Monocytes Absolute Auto 1000 /uL (0-900); Monocytes Percent Auto 14.8 % (3-14); Neutrophils Absolute Auto 3400 /uL (1500-7000); Neutrophils Percent Auto 51.5 % (50-75); Platelet Count 686 X10^3/uL (150-400); Red Blood Cell Count 4.39 X10^6/uL (4.0-5.2); Red Cell Distribution Width 14.8 % (11.6-14.8); White Blood Cell Count 6.6 X10^3/uL (4.5-11.0)
--- NOTE | 2019-06-09 15:57 | ONC.MSW ---
Description: T/C from pt re: hydroxurea, and the need for a new script to be faxed to [facility]. Dr. Valentin had been presribing before, but he is deferring to Dr. Acosta to continue prescribing and issue this script. BUDGET TECHNICIAN provided director of housing and energy servicesKylee, the fax and phone contact information to expedite.
[2019-06-27 11:03] LABS: Add Manual Diff / Slide Review NO; Basophils Absolute Auto 100 /uL (0-100); Basophils Percent Auto 1.4 % (0-2); Eosinophils Absolute Auto 200 /uL (0-450); Eosinophils Percent Auto 2.3 % (2-4); Hematocrit 40.3 % (36-46); Hemoglobin 13.5 g/dL (12.0-16.0); Lymphocytes Absolute Auto 2000 /uL (1100-4500); Lymphocytes Percent Auto 30.4 % (25-40); Mean Corpuscular HGB Conc 33.5 % (30-36); Mean Corpuscular Hemoglobin 31.3 PG (26-34); Mean Corpuscular Volume 93.5 fL (80-100); Monocytes Absolute Auto 900 /uL (0-900); Monocytes Percent Auto 13.5 % (3-14); Neutrophils Absolute Auto 3500 /uL (1500-7000); Neutrophils Percent Auto 52.4 % (50-75); Platelet Count 706 X10^3/uL (150-400); Red Blood Cell Count 4.31 X10^6/uL (4.0-5.2); Red Cell Distribution Width 15.8 % (11.6-14.8); White Blood Cell Count 6.7 X10^3/uL (4.5-11.0)
--- NOTE | 2019-07-01 16:36 | PC.NURSE ---
HYDROXYUREA RX: pATIENT INFORMED THIS NURSE PER TELEPHONE THAT SHE HAS CANCELED ANY PRESCRIPTION SERVICE WITH [facility] (WHICH SENT A REQUEST FOR HYDROXYUREA RX RENEWAL ON 06/10) AND THAT SHE WISHES A NEW RX FROM DR CHEN TO BE SENT TO [facility]. DR. CHEN WAS INFORMED AND RX SENT.
[2019-07-25 13:59] LABS: Add Manual Diff / Slide Review NO; Basophils Absolute Auto 100 /uL (0-100); Basophils Percent Auto 1.5 % (0-2); Eosinophils Absolute Auto 200 /uL (0-450); Eosinophils Percent Auto 2.1 % (2-4); Hemoglobin 14.3 g/dL (12.0-16.0); Lymphocytes Absolute Auto 1800 /uL (1100-4500); Lymphocytes Percent Auto 24.3 % (25-40); Mean Corpuscular HGB Conc 33.2 % (30-36); Mean Corpuscular Hemoglobin 30.7 PG (26-34); Mean Corpuscular Volume 92.5 fL (80-100); Monocytes Absolute Auto 800 /uL (0-900); Monocytes Percent Auto 10.5 % (3-14); Neutrophils Absolute Auto 4500 /uL (1500-7000); Neutrophils Percent Auto 61.6 % (50-75); Platelet Count 762 X10^3/uL (150-400); Red Blood Cell Count 4.65 X10^6/uL (4.0-5.2); Red Cell Distribution Width 16.9 % (11.6-14.8); White Blood Cell Count 7.3 X10^3/uL (4.5-11.0)
[2019-07-25 14:09] LABS: Alanine Aminotransferase 30 IU/L (<35); Albumin 4.7 g/dL (3.5-5.0); Albumin Globulin Ratio 1.7 (1.0-2.8); Alkaline Phosphatase 90 U/L (38-126); Aspartate Aminotransferase 41 IU/L (14-36); Bilirubin Total 0.5 mg/dL (0.2-1.3); Blood Urea Nitrogen 27 mg/dL (7-17); Calcium 9.9 mg/dL (8.4-10.2); Carbon Dioxide 32 mmol/L (22-32); Chloride 101 mmol/L (98-107); Estimated Glomerular Filt Rate 59.7 mL/min (>60); Globulin 2.8 g/dL (1.7-4.1); Glucose 97 mg/dL (80-110); HEMOLYSIS < 15 (0-50); Potassium 4.9 mmol/L (3.4-5.1); Sodium 140 mmol/L (137-145); Total Protein 7.5 g/dL (6.3-8.2)
[2019-07-25 14:27] LABS: RBC Morphology Normal Morphology
[2019-07-29 13:10] VITALS: BP 137/62; PULSE 78; RESP 18; TEMP 36.9; O2SAT 96
--- NOTE | 2019-07-29 13:29 | P.PNONC_ITS ---
PN -Subjective Interval history: Diagnosis: Essential thrombocytosis, negative for LEA-2 or KIN-R mutations. Previous treatment: Hydroxyurea. She is currently on 200 mg every other day alternating with 100 mg. Interval history: The patient is an 83-year-old woman who was seen today for follow-up of essential thrombocytosis. Since her last visit here, she has been feeling generally well. She has been tolerating the hydroxyurea without any significant difficulty. 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 She has noted some cramps in her feet and hands. She has been drinking some tonic water which he thinks helps a little bit. She denies any fevers chills or sweats. She has not had any unusual bleeding or bruising. She has not had any thrombotic complications. Her appetite has been good and her weight is been stable. No GI complaints. She denies any shortness of breath or cough. She has not noticed any skin rash. Her past medical history is notable for COPD, hypertension. She is planning to moving to assisted living in [place]. This be closer to her family. - Patient Self-Reported Symptoms SR Constitution: Fatigue/Malaise SR eye issues: Vision changes SR ears, nose, mouth, throat issues: Ears ringing, Cough SR respiratory issues: Cough SR Cardiovascular issues: Palpitations SR Skin issues: Hair loss or scalp prob SR Gastrointestinal issues: Change in bowel pattern SR Genitourinary issues: Frequent urination SR Musculoskeletal issues: Muscle pain or cramps, Back or neck pain SR Neuro issues: Difficulty balancing SR Endocrine issues: Excessive urination Home Medications and Allergies Home Medications Medication Instructions Recorded Confirmed Type ACETAMINOPHEN/DIPHENHYDRAMINE 500 mg PO HSP #0 03/27/13 07/29/19 History (Tylenol Pm Ex-Strength Gelcap) amlodipine [Norvasc] 5 mg PO QDAY #0 03/27/13 07/29/19 History aspirin 81 mg PO QDAY #0 03/27/13 07/29/19 History famotidine [Pepcid] 20 mg PO BID #0 03/27/13 07/29/19 History mesalamine [Delzicol] 400 mg PO BID #0 03/27/13 07/29/19 History ferrous sulfate [iron] 325 mg PO DAILY 07/31/18 07/29/19 History methocarbamol 500 mg PO TID 07/31/18 07/29/19 History donepezil 5 mg PO BEDTIME 02/25/19 07/29/19 History gabapentin 100 mg PO BEDTIME 04/29/19 07/29/19 History hydroxyurea (sickle cell) [Droxia] 15 mg/kg PO DAILY #45 cap 07/01/19 07/29/19 Rx Allergies Allergy/AdvReac Type Severity Reaction Status Date / Time celecoxib [From CELEBREX] Allergy Unknown Verified 07/31/18 11:07 lisinopril [LISINOPRIL] Allergy Unknown Verified 07/31/18 11:07 rofecoxib Allergy Unknown Verified 07/31/18 11:07 Sulfa (Sulfonamide Allergy Unknown Verified 07/31/18 11:07 Antibiotics) sulfamethoxazole Allergy Unknown Verified 07/31/18 11:07 [From BACTRIM] tramadol [TRAMADOL] Allergy Unknown Verified 07/31/18 11:07 trimethoprim [From BACTRIM] Allergy Unknown Verified 07/31/18 11:07 ranitidine AdvReac Unknown Verified 07/31/18 11:07 Exam Vital signs: Vital Signs Temp Pulse Resp BP Pulse Ox 07/29/19 13:10 98.5 F 78 18 137/62 96 Intake and Output 07/28/19 07/29/19 07/29/19 23:59 07:59 15:59 Other: Weight 55.6 kg Patient Weight 07/29/19 23:59 Weight 55.6 kg - Constitutional positive no acute distress, positive average body habitus - Routine HEENT Exam Head: Present: normocephalic, atraumatic Eye: Present: EOMI, PERRL. Absent: conjunctival icterus, scleral injection ENT: Present: mucous membranes moist, oropharynx clear - Routine Neck Exam Present: supple. Absent: lymphadenopathy, thyromegaly - Routine Respiratory Exam Present: Clear to auscultation bilaterally. Absent: rales, wheezes - Routine Cardiovascular Exam Present: RRR, S1, S2. Absent: murmur - Routine Abdominal Exam Present: soft, normoactive bowel sounds. Absent: tenderness, organomegaly, mass - Routine Extremities Exam Absent: cyanosis, clubbing, edema - Routine Back/Spine Exam Back/Spine: Absent: vertebral tenderness - Routine Skin Exam Present: intact. Absent: petechiae, rash, ecchymosis - Routine Neurological Exam Present: alert, oriented X3 - Routine Psychiatric Exam Present: normal affect, normal thought process Results - Labs Laboratory Last Values WBC 7.3 X10^3/uL (4.5-11.0) 07/25/19 13:48 RBC 4.65 X10^6/uL (4.0-5.2) 07/25/19 13:48 Hgb 14.3 g/dL (12.0-16.0) 07/25/19 13:48 Hct 43.0 % (36-46) 07/25/19 13:48 MCV 92.5 fL (80-100) 07/25/19 13:48 MCH 30.7 PG (26-34) 07/25/19 13:48 MCHC 33.2 % (30-36) 07/25/19 13:48 RDW 16.9 % (11.6-14.8) H 07/25/19 13:48 Plt Count 762 X10^3/uL (150-400) H 07/25/19 13:48 Neut % (Auto) 61.6 % (50-75) 07/25/19 13:48 Lymph % (Auto) 24.3 % (25-40) L 07/25/19 13:48 [place] % (Auto) 10.5 % (3-14) 07/25/19 13:48 Eos % (Auto) 2.1 % (2-4) 07/25/19 13:48 Baso % (Auto) 1.5 % (0-2) 07/25/19 13:48 Neut # (Auto) 4500 /uL (4253-0895) 07/25/19 13:48 Lymph # (Auto) 1800 /uL (3093-6576) 07/25/19 13:48 [place] # (Auto) 800 /uL (0-900) 07/25/19 13:48 Eos # (Auto) 200 /uL (0-450) 07/25/19 13:48 Baso # (Auto) 100 /uL (0-100) 07/25/19 13:48 Platelet Estimate Increased on smear 04/22/19 11:18 Plt Morphology Comment 04/22/19 11:18 RBC Morphology Normal morphology 07/25/19 13:48 Sodium 140 mmol/L (137-145) 07/25/19 13:48 Potassium 4.9 mmol/L (3.4-5.1) 07/25/19 13:48 Chloride 101 mmol/L (98-107) 07/25/19 13:48 Carbon Dioxide 32 mmol/L (22-32) 07/25/19 13:48 BUN 27 mg/dL (7-17) H 07/25/19 13:48 Creatinine 0.90 mg/dL (0.52-1.04) 07/25/19 13:48 Estimated GFR 59.7 mL/min (>60) L 07/25/19 13:48 BUN/Creatinine Ratio 30.0 (6-22) H 07/25/19 13:48 Glucose 97 mg/dL (80-110) 07/25/19 13:48 Calcium 9.9 mg/dL (8.4-10.2) 07/25/19 13:48 Total Bilirubin 0.5 mg/dL (0.2-1.3) 07/25/19 13:48 AST 41 IU/L (14-36) H 07/25/19 13:48 ALT 30 IU/L (<35) 07/25/19 13:48 Alkaline Phosphatase 90 U/L (38-126) 07/25/19 13:48 Total Protein 7.5 g/dL (6.3-8.2) 07/25/19 13:48 Albumin 4.7 g/dL (3.5-5.0) 07/25/19 13:48 Globulin 2.8 g/dL (1.7-4.1) 07/25/19 13:48 Albumin/Globulin Ratio 1.7 (1.0-2.8) 07/25/19 13:48 Assessment and Plan (1) Essential (hemorrhagic) thrombocythemia Current visit: Yes Status: Acute 82-year-old woman with a longstanding history of essential thrombocytosis. Her white cell count red cell count of been normal or platelet count is in the 700. She is tolerating the Hydrea with minimal toxicity. She will continue with her current dose for now. She will follow up with a casing finisher and stuffer at the [facility]. I have not scheduled a follow-up appointment for her here but would be happy to see her again in the future should the need arise.
[2019-08-26 12:01] LABS: Add Manual Diff / Slide Review NO; Basophils Absolute Auto 100 /uL (0-100); Basophils Percent Auto 1.5 % (0-2); Eosinophils Absolute Auto 200 /uL (0-450); Eosinophils Percent Auto 2.5 % (2-4); Hematocrit 39.8 % (36-46); Hemoglobin 13.1 g/dL (12.0-16.0); Lymphocytes Absolute Auto 2200 /uL (1100-4500); Lymphocytes Percent Auto 25.5 % (25-40); Mean Corpuscular Hemoglobin 30.4 PG (26-34); Mean Corpuscular Volume 92.1 fL (80-100); Monocytes Absolute Auto 1000 /uL (0-900); Monocytes Percent Auto 11.7 % (3-14); Neutrophils Absolute Auto 5000 /uL (1500-7000); Neutrophils Percent Auto 58.8 % (50-75); Platelet Count 624 X10^3/uL (150-400); Red Blood Cell Count 4.33 X10^6/uL (4.0-5.2); Red Cell Distribution Width 16.7 % (11.6-14.8); White Blood Cell Count 8.5 X10^3/uL (4.5-11.0)
== END ==
PROVIDERS: Family Provider Internal Medicine; PCP Internal Medicine
DX: D47.3 Essential (hemorrhagic) thrombocythemia (principal)
CPT/HCPCS: 36415; 80053; 85025; 99214